=== PATIENT | female | born 1960 | race Caucasian/White ===

== ENCOUNTER → 2019-06-29 15:03 | Outpatient (BNVA) | payer MEDICAID, SELFPAY | PROVIDERS: Family Provider Nurse Practitioner Family; PCP Nurse Practitioner Family; Visit Provider Specialist | DX: G35 Multiple sclerosis (principal); F17.210 Nicotine dependence, cigarettes, uncomplicated | CPT/HCPCS: 99214 ==

== ENCOUNTER → 2019-12-13 12:11 | Outpatient (BNVA) | payer MEDICAID, SELFPAY | PROVIDERS: Family Provider Nurse Practitioner Family; PCP Nurse Practitioner Family; Visit Provider Specialist | DX: G35 Multiple sclerosis (principal); G62.9 Polyneuropathy, unspecified; M54.5 Low back pain; F17.210 Nicotine dependence, cigarettes, uncomplicated | CPT/HCPCS: 99214 ==

== ENCOUNTER 2019-12-22 13:09 | Outpatient (CLI) | payer MEDICAID, SELFPAY ==
--- NOTE | 2019-12-22 13:19 | MR_ITS ---
WS: [id number] MRI HEAD WITH CONTRAST TECHNIQUE: Sagittal T1, T2 axial, T2 axial FLAIR, axial susceptibility weighted imaging, axial diffus ion weighted images, and coronal T2 images were obtained. Pre and post-T1 axial and post T1 coronal i mages. ADC and FSPGR images. CLINICAL INFORMATION: MS COMPARISON: MRI October 02, 2017 FINDINGS: No evidence of restricted diffusion to suggest acute ischemia. Ventricular system and basal cisterns are patent. 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 Number and distribution of lesions is not significantly changed since 2018. No enhancing lesions to indicate active disease. Moderate T1 hypointense lesion load. Mild diffuse thinning of the corpus callosum. No hemosiderin on susceptibly weighted images. No abnormal gadolinium enhancement. Normal optic chias m and pituitary infundibulum. Normal visualized dural venous sinuses. Mild to moderate symmetric atro phy involving the temporal lobes and hippocampal formations. MR/MR head wo/w con [id number] IMPRESSION: 1. No evidence of restricted diffusion to suggest acute ischemia. 2. Moderate patchy supratentorial white matter changes compatible with demyeli nating disease. Number and distribution of lesions is unchanged. 3. No enhancing lesions to indicate active disease. 4. Moderate T1 hypointense lesion load. 5. Moderate atrophy of the corpus callosum. 6. No other significant changes.
[2019-12-22 14:21] LABS: Blood Urea Nitrogen 11 mg/dL (8-23); Glomerular Filtration Rate 72.9 mL/min (90-130)
== END 2019-12-22 13:10 | disposition home or self-care (01) ==
PROVIDERS: Family Provider Nurse Practitioner Family; PCP Nurse Practitioner Family; Visit Provider Specialist
DX: G35 Multiple sclerosis (principal); G31.9 Degenerative disease of nervous system, unspecified
CPT/HCPCS: 70553; 82565; 84520; A9579

== ENCOUNTER → 2020-08-29 10:23 | Outpatient (BNVA) | payer MEDICAID, SELFPAY | PROVIDERS: Family Provider Nurse Practitioner Family; PCP Nurse Practitioner Family; Visit Provider Specialist | DX: G35 Multiple sclerosis (principal); M65.30 Trigger finger, unspecified finger; F17.210 Nicotine dependence, cigarettes, uncomplicated | CPT/HCPCS: 99213 ==

== ENCOUNTER → 2020-09-18 09:45 | Outpatient (BNVA) | payer MEDICAID, SELFPAY | PROVIDERS: Family Provider Nurse Practitioner Family; PCP Nurse Practitioner Family; Referring Provider Specialist; Visit Provider Orthopaedic Surgery | DX: M65.332 Trigger finger, left middle finger (principal); M65.331 Trigger finger, right middle finger | CPT/HCPCS: 73130 ==

== ENCOUNTER → 2021-08-28 12:32 | Outpatient (BNVA) | payer MEDICAID, SELFPAY | PROVIDERS: Family Provider Nurse Practitioner Family; PCP Nurse Practitioner Family; Visit Provider Specialist | DX: G35 Multiple sclerosis (principal); G62.9 Polyneuropathy, unspecified; M54.50 Low back pain, unspecified | CPT/HCPCS: 99213; 99214 ==

== ENCOUNTER → 2022-09-01 10:37 | Outpatient (BNVA) | payer MEDICAID, SELFPAY | PROVIDERS: Family Provider Nurse Practitioner Family; PCP Nurse Practitioner Family; Visit Provider Specialist | DX: G35 Multiple sclerosis (principal); G62.9 Polyneuropathy, unspecified; M54.59 Other low back pain | CPT/HCPCS: 99214 ==

== ENCOUNTER 2022-09-29 10:10 | Outpatient (CLI) | payer MEDICAID, SELFPAY ==
--- NOTE | 2022-09-29 10:15 | MR_ITS ---
WS: [id number] MRI LUMBAR SPINE NONCONTRAST TECHNIQUE: Sagittal T1, T2 and STIR imaging. Axial T1 and T2 imaging. CLINICAL INFORMATION: G62.9 - Polyneuropathy, unspecified COMPARISON: MRI 2017 FINDINGS: Mild lumbar curve. No acute compression. Slight anterolisthesis L3 on L4 and L4 on L5. Disc space hussein rowing worse L5-S1. L1-L2: Tiny RIGHT synovial cyst with narrowing of the RIGHT dorsal thecal sac. Spinal canal is patent . Moderate facet arthropathy. Foramen are patent. L2-L3: Mild annular bulging. Advanced facet arthropathy. Mild LEFT and no significant RIGHT foraminal narrowing. L3-L4: Slight anterolisthesis L3 on L4. Mild disc bulging with slight effacement of the ventral theca l sac. Moderate RIGHT and mild LEFT foraminal narrowing. Advanced facet arthropathy. L4-L5: Slight anterolisthesis. Mild disc bulging with slight narrowing of the RIGHT subarticular rece ss. Advanced facet arthropathy. Mild RIGHT and no significant LEFT foraminal narrowing. Spinal canal is patent. L5-S1: Tiny central LEFT pericentral protrusion. Slight impingement on traversing LEFT S1 nerve root. Moderate facet arthropathy. Moderate LEFT and no significant RIGHT foraminal narrowing. Visualized pelvic bony structures: Normal. Paravertebral soft tissues: Normal. Slight anterolisthesis L3 on L4 has progressed compared to 2017. Disc space narrowing L5-S1 has progr essed. MR/MR lumbar spine wo con* [id number] IMPRESSION: 1. Mild lumbar curve. No acute compression. 2. Narrowing of the RIGHT subarticular recess L3-L4 and L4-L5. 3. Small disc osteophyte protrusion L5-S1 impinges the LEFT S1 nerve root in t he subarticular recess. Moderate LEFT L5-S1 foraminal narrowing. 4. Tiny RIGHT synovial cyst L1-L2 with slight impingement of the RIGHT dorsal thecal sac is new from previous. 5. Moderate RIGHT L3-L4 and RIGHT L4-L5 foraminal narrowing. 6. Moderate facet arthropathy L3-L5.
== END 2022-09-29 10:11 | disposition home or self-care (01) ==
LOC: RAD 10:14
PROVIDERS: Family Provider Nurse Practitioner Family; PCP Nurse Practitioner Family; Visit Provider Specialist
DX: G62.9 Polyneuropathy, unspecified (principal); M51.27 Other intervertebral disc displacement, lumbosacral region
CPT/HCPCS: 72148

== ENCOUNTER → 2023-01-07 13:13 | Outpatient (BNVA) | payer MEDICAID, SELFPAY | PROVIDERS: Family Provider Nurse Practitioner Family; PCP Nurse Practitioner Family; Visit Provider Specialist | DX: G35 Multiple sclerosis (principal) | CPT/HCPCS: G0463 ==

== ENCOUNTER → 2023-03-23 11:27 | Outpatient (BNVA) | payer MEDICAID, SELFPAY | PROVIDERS: Family Provider Nurse Practitioner Family; PCP Nurse Practitioner Family; Visit Provider Specialist | DX: G35 Multiple sclerosis (principal) | CPT/HCPCS: 99213 ==

== ENCOUNTER → 2024-04-21 09:55 | Outpatient (BNVA) | payer MEDICARE, MEDICAID, SELFPAY | PROVIDERS: Family Provider Nurse Practitioner Family; PCP Nurse Practitioner Family; Visit Provider Specialist | DX: G35 Multiple sclerosis (principal) | CPT/HCPCS: 99213 ==

== ENCOUNTER 2024-11-10 11:33 | Outpatient (CLI) | payer MEDICARE, MEDICAID, SELFPAY ==
--- NOTE | 2024-11-10 12:00 | MM_ITS ---
WS: [id number] BILATERAL SCREENING DIGITAL TOMOSYNTHESIS MAMMOGRAM WITH CAD HISTORY: SCREENING COMPARISON: 12/25/2021 Bilateral CC and MLO views with tomosynthesis and synthetic mammography submitted. Computer aided detection analyzed. Breast composition: The breasts are almost entirely fatty. No suspicious masses, microcalcifications or architectural distortion. Numerous bilateral coarse calcifications in each breast. MM/MM scr BI tomosynthesis [id number] IMPRESSION: BI-RADS: 2 - Benign. FOLLOW UP: 1 Year Follow-up
== END 2024-11-10 11:34 | disposition home or self-care (01) ==
PROVIDERS: PCP Nurse Practitioner Family; Visit Provider Nurse Practitioner Family
DX: Z12.31 Encounter for screening mammogram for malignant neoplasm of breast (principal); R92.313 Mammographic fatty tissue density, bilateral breasts; R92.1 Mammographic calcification found on diagnostic imaging of breast
CPT/HCPCS: 77063; 77067